=== PATIENT | male | born 1960 | race Caucasian/White ===

== ENCOUNTER 2016-11-22 06:34 | Day surgery (SDC) | payer OTHER, MEDICARE | END 2016-11-22 10:32 | disposition home or self-care (01) | DX: M89.8X1 Other specified disorders of bone, shoulder (principal); E11.9 Type 2 diabetes mellitus without complications; E66.9 Obesity, unspecified; F32.9 Major depressive disorder, single episode, unspecified; M19.90 Unspecified osteoarthritis, unspecified site; E78.5 Hyperlipidemia, unspecified; G47.39 Other sleep apnea; I10 Essential (primary) hypertension; J01.00 Acute maxillary sinusitis, unspecified; Z79.899 Other long term (current) drug therapy; Z79.891 Long term (current) use of opiate analgesic ==

== ENCOUNTER 2017-04-21 12:50 | Emergency (ER) | payer BC, MEDICARE ==
--- NOTE | 2017-04-22 23:41 | ER ---
ADMIT: 04/21/2017 RM/LOC: ER [facility] MR#: [id number] [facility] [address] [place] [id number] BRENNANNILE RYAN [address] [place] [address] Emergency Room Report SEX: M AGE: 56 : 1960 DATE: 04/21/2017 CHIEF COMPLAINT: Swelling of the face. HISTORY OF PRESENT ILLNESS: This is a 56-year-old male, who has a history of lymphoma, hence we are doing a chemotherapy. Just recently according to his , his white count was less than 1. They spoke with Dr. Odonnell this morning. He was concerned about infection, so sent him to the ER. He does have an abscess to the right side confirmed with CT, but his white count is up to 2.1, hemoglobin is 10.8, platelets are 203. CMP is normal. I did give him 2 g of Rocephin and sent him home with amoxicillin, told him to continue the Bactrim. He has also been having a little more anxiety and has ran out of his Xanax, so I am prescribing him Xanax 1 mg one tab b.i.d. per p.r.n. anxiety. I did tell him to return if he develops any kind of fever or worsening of the swelling or follow up with his dentist this weekend. IMPRESSION: 1. Right tooth abscess. 2. Anxiety. OSCAR Serna / Godwin Nogueira MD / geovanna JOB #: [id number] CC: Nile Conn MD, Attending Physician Owen Araujo MD, Family Physician
== END 2017-04-21 15:30 | disposition home or self-care (01) ==
LOC: ER 12:50
DX: K04.7 Periapical abscess without sinus (principal); F41.9 Anxiety disorder, unspecified